=== PATIENT | female | born 1970 | race American Indian/Alaskan Native ===

== ENCOUNTER 2020-12-22 03:29 | Emergency (ER) | payer SELFPAY ==
[2020-12-22 04:21] VITALS: BP 117/71
[2020-12-22] MEDS ORDERED: IBUPROFEN 800 MG TAB PO ONE (07:47)
--- NOTE | 2020-12-22 08:27 | XRay Report ---
CHEST 2 VIEWS INDICATION / CLINICAL INFORMATION: sob. COMPARISON: None available. FINDINGS: SUPPORT DEVICES: None. HEART / MEDIASTINUM: No significant abnormality. LUNGS / PLEURA: No significant pulmonary or pleural abnormality. No pneumothorax. ADDITIONAL FINDINGS: Minimal thoracolumbar scoliosis. IMPRESSION: 1. No acute findings. Signer Name: Helga Carter MD Signed: 12/22/2020 8:23 AM Workstation Name: [id number]
--- NOTE | 2020-12-22 09:35 | Emergency Department Report ---
Minor Respiratory - HPI Chief Complaint: Weakness Stated Complaint: WEAKNESS, COUGH Time Seen by Provider: 12/22/20 07:47 Duration: 3 Days Pain Location: Chest Severity: mild Minor Respiratory: Yes Sore Throat, Yes Able to Tolerate Fluids, Yes Cough, Yes Fever, No Rhinorrhea, No Ear Pain, No Sick Contacts, No Hemoptysis, No Chest Pain, No Shortness of Breath Other History: PT IS A 50 YO AA THAT COMES TO ER WITH SEVERAL DAY HX OF CHILLS, COUGH AND SORE THROAT. DID NOT GET COVID IMMUNIZATIONS. NO KNOWN EXPOSURE. TOOK NOTHING FOR COMPLAINTS [facility] DIRECT[facility]. DID NOT SEE PCP. PT AMBULATORY AND NON ILL ON EXAM. PT DID NOT TAKE TEMP AT HOME - REPORTS CHILLS. DRY COUGH. NO SOB. NO CP ED Review of Systems ROS: Stated complaint: WEAKNESS, COUGH Other details as noted in HPI Comment: All other systems reviewed and negative ED Past Medical Hx - Past Medical History Previous Medical History?: No - Surgical History Past Surgical History?: No - Family History Family history: no significant - Social History Smoking Status: Never Smoker Substance Use Type: Alcohol - Medications Home Medications: Home Medications Medication Instructions Recorded Confirmed Last Taken Type Azithromycin [Zithromax Z-DESTINI] 250 mg PO DAILY #6 tablet 12/22/20 Unknown Rx Minor Respiratory Exam - Exam General: Vital signs noted. No distress. Alert and acting appropriately. HEENT: Yes Moist Mucous Membranes, No Pharyngeal Erythema, No Pharyngeal Exudates, No Rhinorrhea, No Conjuctival Injection, No Frontal Tenderness, No Maxillary Tenderness Ear: Neither TM Bulge, Neither TM Erythema, Neither EAC Pain, Neither EAC Discharge Neck: Yes Supple, No Adenopathy Lungs: Yes Good Air Exchange, No Wheezes, No Ronchi, No Stridor, No Cough, No Labored Respirations, No Retractions, No Use of Accessory Muscles, No Other Abnormal Lung Sounds Heart: Yes Regular, No Murmur Abdomen: Yes Normal Bowel Sounds, No Tenderness, No Peritoneal Signs Skin: No Rash, No Edema Neurologic: Alert and oriented, no deficits. Musculoskeletal: Unremarkable. ED Course Vital Signs 12/22/20 04:08 Temperature 99.5 F Pulse Rate 83 Respiratory 18 Rate Blood Pressure 117/71 O2 Sat by Pulse 97 Oximetry ED Medical Decision Making - Radiology Data Radiology results: image reviewed SEE REPORT - Medical Decision Making Vital Signs 12/22/20 04:08 Temperature 99.5 F Pulse Rate 83 Respiratory 18 Rate Blood Pressure 117/71 O2 Sat by Pulse 97 Oximetry XRAY NOTED PT TAKING PO; NON ILL APPEARING GIVEN MOTRIN FOR LOW GRADE TEMP STABLE VS NO CP OR SOB I'VE EDUCATED PT ON COVID IMMUNIZATION AND RAPID TESTING. ON D/C PT EDUCATED ON PLAN OF CARE INCLUDING FOLLOW UP, RX, DIET AND ACTIVITY - SHE VERBALIZES UNDERSTANDING - Differential Diagnosis URI RO COVID19/PNA/URI Critical care attestation.: If time is entered above; I have spent that time in minutes in the direct care of this critically ill patient, excluding procedure time. ED Disposition Clinical Impression: Cough URI (upper respiratory infection) Qualifiers: URI type: unspecified URI Qualified Code(s): J06.9 - Acute upper respiratory infection, unspecified Disposition: HOME / SELF CARE / HOMELESS Is pt being admited?: No Does the pt Need Aspirin: No Condition: Stable Instructions: Upper Respiratory Infection, Adult, [id number] Additional Instructions: DIET TOLERATED STAY WELL HYDRATED MOTRIN OR TYLENOL FOR PAIN MED ORDERED TODAY FOLLOW UP WITH PCP SUNDAY IF NOT BETTER-REFERRAL BELOW Prescriptions: Azithromycin [Zithromax Z-DESTINI] 250 mg PO DAILY #6 tablet Referrals: TRENTON ALAS MD [Staff Physician] - 3-5 Days Forms: Work/School Release Form(ED) Time of Disposition: 09:34
== END 2020-12-22 09:43 | disposition home or self-care (01) ==
LOC: ED 03:29
DX: J06.9 Acute upper respiratory infection, unspecified (principal); R05 Cough
CPT/HCPCS: 71046; 99283